=== PATIENT | female | born 1940 | race Caucasian/White ===

== ENCOUNTER 2016-11-03 10:15 | Outpatient (CLI) | payer MEDICARE, OTHER | END 2016-11-03 10:16 | disposition home or self-care (01) | DX: M81.0 Age-related osteoporosis without current pathological fracture (principal); Z78.0 Asymptomatic menopausal state ==

== ENCOUNTER 2018-03-19 09:16 | Outpatient (CLI) | payer MEDICARE, OTHER ==
--- NOTE | 2018-03-19 12:38 | Ultrasound Report ---
RENAL ULTRASOUND: 03/19/2018 CLINICAL HISTORY: Chronic UTI, history of right nephrectomy. COMPARISON: None. TECHNIQUE: Real-time scanning was performed with senior human resources representative static images obtained. FINDINGS: The right renal fossa appears unremarkable. The left kidney measures 11.7 x 6.0 x 5.5 cm, and demonstrates no hydronephrosis. No focal renal mass or perinephric collection is seen. Prevoid, the urinary bladder measures 11.0 x 9.2 x 7.2 cm, yielding a prevoid volume of 381 mL. The left ureteral jet is visualized. No focal bladder wall abnormality is seen. Postvoid residual is 34 mL. IMPRESSION: NORMAL LEFT KIDNEY. CHANGES OF RIGHT NEPHRECTOMY. NO SIGNIFICANT POSTVOID RESIDUAL. TD: 03/19/2018 12:23
== END 2018-03-19 09:17 | disposition home or self-care (01) ==
LOC: DI 09:16
PROVIDERS: ATTEND Internal Medicine
DX: R30.0 Dysuria (principal); Z90.5 Acquired absence of kidney
CPT/HCPCS: 76770

== ENCOUNTER 2018-07-31 14:14 | Outpatient (CLI) | payer MEDICARE, OTHER | END 2018-07-31 14:15 | disposition short-term general hospital (02) | LOC: EMS 14:14 | PROVIDERS: ATTEND Surgery | DX: R25.9 Unspecified abnormal involuntary movements (principal); R53.1 Weakness; F41.9 Anxiety disorder, unspecified | CPT/HCPCS: A0170; A0425; A0427 ==

== ENCOUNTER 2019-07-02 06:29 | Outpatient (CLI) | payer MEDICARE, OTHER | END 2019-07-02 06:30 | disposition short-term general hospital (02) | LOC: EMS 06:29 | PROVIDERS: ATTEND Surgery | DX: M54.5 Low back pain (principal); R53.1 Weakness; R42 Dizziness and giddiness | CPT/HCPCS: A0425; A0429 ==

== ENCOUNTER 2020-04-26 08:52 | Outpatient (CLI) | payer MEDICARE, OTHER ==
[2020-04-26 15:23] LABS: BASOPHILS % (AUTO) 0.5 %; EOSINOPHILS # (AUTO) 0.2 10^3/uL (0.0-0.7); EOSINOPHILS % (AUTO) 4.2 %; LYMPHOCYTES # (AUTO) 1.1 10^3/uL (1.5-3.5); LYMPHOCYTES % (AUTO) 18.8 %; MEAN CORPUSCULAR HEMOGLOBIN 29.6 pg (27.0-31.0); MEAN CORPUSCULAR VOLUME 92.5 fL (81.0-99.0); MEAN PLATELET VOLUME 12.2 fL (7.9-10.8); MONOCYTES # (AUTO) 0.4 10^3/uL (0.0-1.0); MONOCYTES % (AUTO) 7.3 %; NEUTROPHILS # (AUTO) 3.9 10^3/uL (1.5-6.6); PLT - PLATELET COUNT 293 10^3/uL (130-450); RED BLOOD COUNT 4.39 10^6/uL (4.20-5.40); RED CELL DISTRIBUTION WIDTH 12.8 % (12.0-15.0); WHITE BLOOD COUNT 5.7 x10^3/uL (4.8-10.8)
[2020-04-26 15:43] LABS: ALBUMIN 4.2 g/dL (3.2-5.5); ALBUMIN/GLOBULIN RATIO 1.4 (1.0-2.2); BILIRUBIN,TOTAL 0.8 mg/dL (0.2-1.0); CALCIUM 9.3 mg/dL (8.5-10.3); CREATININE 0.8 mg/dL (0.4-1.0); TOTAL PROTEIN 7.1 g/dL (6.7-8.2)
== END 2020-04-26 08:53 | disposition home or self-care (01) ==
LOC: LAB.S 08:52
PROVIDERS: ATTEND Nurse Practitioner Family
DX: R42 Dizziness and giddiness (principal)
CPT/HCPCS: 36415; 80053; 84443; 85025

== ENCOUNTER 2022-03-02 08:00 | Outpatient (CLI) | payer MEDICARE, OTHER | END 2022-03-02 23:59 | disposition home or self-care (01) | LOC: LAB.S 08:00 | PROVIDERS: ATTEND Registered Nurse | DX: L03.115 Cellulitis of right lower limb (principal) | CPT/HCPCS: 87070; 87205 ==

== ENCOUNTER 2022-07-16 11:03 | Outpatient (CLI) | payer MEDICARE, OTHER | END 2022-07-16 11:04 | disposition short-term general hospital (02) | LOC: EMS 11:03 | DX: R29.818 Other symptoms and signs involving the nervous system (principal); R47.89 Other speech disturbances; R56.9 Unspecified convulsions | CPT/HCPCS: A0425; A0429 ==